=== PATIENT | male | born 1960 | race Caucasian/White ===

== ENCOUNTER → 2017-07-29 | Outpatient (CLI) | payer OTHER ==
--- NOTE | 2017-07-29 19:05 | CONS ---
CONSULTATION DATE OF SERVICE: 07/29/2017 57-year-old gentleman has been evaluated in [facility] for obstructive sleep apnea- hypopnea syndrome. HISTORY OF PRESENT ILLNESS/SLEEP WAKE EVALUATION: Patient has been diagnosed with obstructive sleep apnea 21 years ago. Since that time he is on treatment with CPAP with a nasal mask. About 1 year ago he received new machine and since that time he referring problem while he is using his machine. According to his , he sometimes snores with the machine and he wakes up from sleep twice using his machine and possibly has episodes of stopped breathing during the sleep due to sleep. Copy of report should go to Dr. Yuniel Aponte, in [employer]. SLEEP SCHEDULE: Usual sleep schedule from 11:00 p.m. to 430 a.m. or until 8:00 am is depending of patient's shift. 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 On weekends he sleeps from 11:00 p.m. to 8:00 a.m. FALLING ASLEEP: Sometimes he has problem with falling asleep. Has TV set in bedroom. DURING SLEEP: According to his , he snores and episodes of stopped breathing episodes while using his CPAP. I checked his CPAP unit. It is an outer regimen 10-15 cm of water. Apnea-hypopnea index reading for the last night at 9.7, for the last month in the range of 4. Usage is 28 out of 30 nights for more than 4 hours. Average usage is 6.9 hours. Significant leak 90 L/minute. PAST MEDICAL HISTORY: Positive for recent memory problems. PAST SURGICAL HISTORY: Appendectomy, tonsillectomy. MEDICATIONS: None. SOCIAL HISTORY: Positive for smoking in the past for 25 pack years, quit about 15 years ago. Alcohol consumption occasional. FAMILY HISTORY: Hyperlipidemia, arthritis, lung problems, cancer. REVIEW OF SYSTEMS: Awakenings from sleep. Recent memory problems, snoring with CPAP. PHYSICAL EXAM: gentleman without distress. BP 151/79, HR 74, RR 16, height 5 feet 7 inches, weight 171, BMI 26.7, temp 97.7, oxygen saturation room air 95%. Oropharynx low position of soft palate, restriction of nasal breathing on the left side. Neck 16 inches in circumference. Neck Supple, no JVD. Thyroid is not palpable. LUNGS Clear to percussion and to auscultation. Good air exchange. No wheezing or rhonchi. HEART S1, S2 regular. No murmurs, gallops, or rubs. ABDOMEN Soft and nontender. Bowel sounds are present. No organomegaly appreciated. EXTREMITIES No clubbing or cyanosis. 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 Cranial nerves 2 to 7 intact. There is no fasciculation or atrophy. noted. No focal deficits observed. IMPRESSION: 1. Obstructive sleep apnea-hypopnea syndrome for more than 20 years. For last year patient experiencing difficulties with his CPAP unit according to his for snoring and episodes of stopped breathing. Apnea-hypopnea index reading for the last night from the machine 9.7. The patient demonstrated practically 100% compliance with CPAP therapy. 2. Memory problems. 3. Status post appendectomy. 4. Status post tonsillectomy. 5. History of 25 pack year smoking in the past. 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 PLAN: 1. We will proceed with CPAP titration for evaluation of effective CPAP pressure at the present time and also for proper fitting patient with a mask. 2. Very well sleep hygiene. 3. Sleep hygiene with regular time in bed for at least 8 hours. 4. No driving if feeling sleepiness. Sincerely, Manuel Solis MD, PhD, FAASM Diplomat of [employer] Medical Staff Services Manager of [facility] [place] MMODL / YAS: [id number] /
== END | disposition home or self-care (01) ==
LOC: SLEEP 13:09
PROVIDERS: ATTEND Internal Medicine
DX: G47.33 Obstructive sleep apnea (adult) (pediatric) (principal); R41.3 Other amnesia; Z87.891 Personal history of nicotine dependence; Z90.89 Acquired absence of other organs
CPT/HCPCS: 99211

== ENCOUNTER → 2017-08-19 | Outpatient (CLI) | payer OTHER ==
--- NOTE | 2017-08-19 11:30 | SFUN ---
SLEEP CENTER FOLLOW UP NOTE DATE OF SERVICE: 08/19/2017 This 57-year-old gentleman has been followed in the sleep center for treatment of obstructive sleep apnea-hypopnea syndrome. Recently patient underwent CPAP titration, which showed that effective pressure was 8 cm of water. Subsequently, CPAP unit was adjusted to this pressure and today patient returned back for followup visit. Presently, he is able to use his machine every night, which he was not able to do before pressure in the machine was changed and sleeps well. [place] Sleepiness Scale today is 6. He had one episode for the last week when he had some abnormalities of breathing while he used his machine he believes. I checked his CPAP unit. CPAP pressure is 8 cm of water. Usage is a every night more than 4 hours. Average usage is 6.6 hours. Leak is 49 L/minute for the last week. Apnea-hypopnea index in the range of 5, which is acceptable range. MEDICATIONS: None. PHYSICAL EXAMINATION: During physical exam, patient in no distress. VITAL SIGNS: BP 127/71, HR 69, RR 12, temperature 98.1, oxygen saturation at room air 95%. HEENT: PERRLA, EOMI. Oropharynx, low position of soft palate. NECK: Supple, no JVD. Thyroid is not palpable. LUNGS: Clear to percussion and to auscultation. Good air exchange. No wheezing or rhonchi. HEART: S1, S2 regular. No murmurs, gallops, or rubs. ABDOMEN: Soft and nontender. Bowel sounds are present. No organomegaly appreciated. EXTREMITIES: No clubbing or cyanosis. 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 Cranial nerves 2 to 7 intact. There is no fasciculation or atrophy. noted. No focal deficits observed. IMPRESSION: 1. Obstructive sleep apnea-hypopnea syndrome. Patient demonstrates a great compliance with treatment benefitting from treatment. 2. Some moderate periodic limb movements have been documented during the sleep study. Clinically not any problems related to movements. 3. History of memory problems. 4. Status post tonsillectomy. 5. Status post appendectomy. 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 7. History of 25 pack year smoking in the past. PLAN: 1. I will increase pressure in CPAP unit to 9 cm of water. 2. Patient will continue to use his equipment every night for the whole night. 3. Sleep hygiene with regular time in bed for 8 hours. 4. No driving if feeling any sleepiness. Thank you very much for allowing me to participate in management of your patient. Sincerely, Manuel Solis MD, PhD, FAASM Diplomat of [employer] Patient Assistant of [facility] [place] I will see patient in 6 months or earlier if patient has any problems. MMODL / IJN: [id number] /
== END | disposition home or self-care (01) ==
LOC: SLEEP 10:25
PROVIDERS: ATTEND Internal Medicine
DX: G47.33 Obstructive sleep apnea (adult) (pediatric) (principal); G47.61 Periodic limb movement disorder; Z90.89 Acquired absence of other organs; Z87.891 Personal history of nicotine dependence; Z86.59 Personal history of other mental and behavioral disorders; Z99.89 Dependence on other enabling machines and devices

== ENCOUNTER → 2020-12-10 | Outpatient (CLI) | payer OTHER ==
--- NOTE | 2020-12-10 15:06 | P.SLEEP ---
History of Present Illness H&P Date: 12/10/20 this is a 60-year-old male patient is coming in regarding his obstructive sleep apnea. The patient has seen in our office through Dr. Solis and his last evaluation in our office was back in 2018. At that time, the patient was utilizing a CPAP machine at a pressure of 11 cm of water. This was based on a titration that was done back then and his treatment was essentially successful. More recently, the patient was having some issues with leaks on the mask and snoring and increased tiredness and sleepiness. For that reason, the patient came back for another evaluation. There is my first encounter with the patient. Is a pleasant gentleman, who has been a long-term CPAP user. He goes to bed around 8 PM, wakes up 3 AM in the morning and on weekends he goes to bed around 9 PM and wakes at 6 AM in the morning. He is averaging more than 6 hours of sleep. No major hypersomnia and sleepiness during the day. No sleepwalking. No sleep talking. No recent weight gain or weight loss. In fact over the past 5 years, the patient has lost weight. He sleeps in different body positions. Jeanmarie hunter does not drink alcohol yet he drinks 6 cups of caffeinated beverage on a daily basis. I checked the patient's CPAP unit. The patient has a functioning new generation ResMed unit which is in APAP unit and this is set at a fixed pressure of 11 cm of water. He is also using the airfit F20 facemask large size. I checked the mask setting and the patient had had used that were rather old and loose. Probably the leak was related to the loosen straps on the headgear. Otherwise, based on compliancy, the patient utilizes machine every night. His compressive for more than 4 hour use is at 100%. Leak has been in the order of 22 L per minute and his AHI was down to 5.1. The patient was averaging around 6.8 hours of CPAP use per night. His current upper scores at 5. No other new onset medical problems and comorbidities. No cardiovascular disease. No cardiac arrhythmias. No nighttime shortness of breath or chest pain. No episodes of falling sleep during day-to-day activities. No memories of concentration. No other complaints otherwise for now. Review of Systems Constitutional: Reports fatigue Eyes: denies as per HPI, denies blurred vision, denies bulging eye, denies decreased vision, denies diplopia, denies discharge, denies dry eye, denies irritation, denies itching, denies pain, denies photophobia, denies loss of peripheral vision, denies loss of vision, denies tunnel vision/blind spots Ears: deny: decreased hearing, ear discharge, earache, tinnitus Ears, nose, mouth and throat: Reports as per HPI Breasts: absent: as per HPI, gynecomastia Cardiovascular: Reports as per HPI Respiratory: Reports as per HPI Gastrointestinal: Reports as per HPI Genitourinary: Reports as per HPI Musculoskeletal: Reports as per HPI Musculoskeletal: absent: ankle pain, ankle stiffness, ankle swelling, as per HPI, elbow pain, elbow stiffness, elbow swelling, foot pain, foot stiffness, elva t swelling, hand pain, hand stiffness, hand swelling, hip pain, hip stiffness, hip swelling, knee pain, knee stiffness, knee swelling, shoulder pain, shoulder stiffness, shoulder swelling, wrist pain, wrist stiffness, wrist swelling Integumentary: Reports as per HPI Neurological: Reports as per HPI Psychiatric: Reports as per HPI Endocrine: Reports as per HPI Hematologic/Lymphatic: Reports as per HPI Allergic/Immunologic: Reports as per HPI Past Medical History Past Medical History: Sleep Apnea/CPAP/BIPAP Additional Past Medical History / Comment(s): cervical spondylosis Additional Past Surgical History / Comment(s): surgery for cervical spondylosis Past Psychological History: No Psychological Hx Reported Smoking Status: Never smoker Past Alcohol Use History: None Reported Past Drug Use History: None Reported Medications and Allergies Home Medications and Allergies Comment(s): no medication inake Physical Exam The patient appeared well nourished and normally developed. Vital signs as documented. Head exam is unremarkable. No scleral icterus or corneal arcus noted. Neck is without jugular venous distension, thyromegaly, or carotid bruits. Carotid upstrokes are brisk bilaterally. Lungs are clear to auscultation and percussion. Cardiac exam reveals the PMI to be normally sized and situated. Rhythm is regular. First and second heart sounds normal. No murmurs, rubs or gal lops. Abdominal exam reveals normal bowel sounds, no masses, no organomegaly and no aortic enlargement. Extremities are nonedematous and both femoral and pedal pulses are normal.Examination of the skin revealed no evidence of significant rashes, suspicious appearing nevi or other concerning lesions.Neurologically, the patient is awake and alert and the patient does not have any focal neurological deficit. Cranial nerves are essentially intact.Neurologically, the patient is awake and alert and the patient does not have any focal neurological deficit. Cranial nerves are essentially intact. Assessment and Plan Plan: 1 obstructive sleep apnea. The patient has an established diagnosis of obstructive sleep apnea many years back and the patient is currently on CPAP pressure of 11 cm of water. Continues to be extremely compliant to CPAP therapy. Nevertheless, he is having issues with some limited limited leaks around the mask and his AHI is currently above 5. No recent weight gain. His [place] score is at 5. No major hypersomnia and sleepiness during the day. No new onset comorbidities. No weight gain. No other cardiovascular complications Plan Offered the patient the Airfit F30i large medium-sized fullface mask and the mask fit was much better with this mask and I would anticipate lamination of the leaks and the appropriate mask fitting was done in the office. Switch this patient in APAP mode at a pressure minimum of 10 and a maximum of 15 and this should allow to bring his AHI on the 5 Otherwise the patient is compliant with CPAP therapy Sleep hygiene measures and in general good Maintenance a regular sleep schedule See her back in 6 months for another compliancy check Sleep Note - Sleep Data Previous Sleep Study: Yes PAP Device: CPAP Mask: Model (ResMed air sense Autoset) Using Heated Humidity: Yes - Sleep Note Sleep Note: Temperature: 97 8 Pulse Rate: 67 Respiratory Rate: 16 Blood Pressure: 147/81 SpO2: 97% Height: 5 feet 7 inches Weight: 167 pounds BMI: 25.3 Neck Circumference: 15 and half inches Current [place] score is at 5
== END | disposition home or self-care (01) ==
LOC: SLEEP 14:34
PROVIDERS: ATTEND Internal Medicine Critical Care Medicine
DX: G47.33 Obstructive sleep apnea (adult) (pediatric) (principal)
CPT/HCPCS: 99202

== ENCOUNTER → 2021-06-17 | Outpatient (CLI) | payer OTHER ==
--- NOTE | 2021-06-17 16:18 | P.PN ---
Subjective Progress Note Date: 06/17/21 this is a 60-year-old male patient is coming in regarding his obstructive sleep apnea. The patient has seen in our office through Dr. Solis and his last evaluation in our office was back in 2018. At that time, the patient was utilizing a CPAP machine at a pressure of 11 cm of water. This was based on a titration that was done back then and his treatment was essentially successful. More recently, the patient was having some issues with leaks on the mask and snoring and increased tiredness and sleepiness. For that reason, the patient came back for another evaluation. There is my first encounter with the patient. Is a pleasant gentleman, who has been a long-term CPAP user. He goes to bed a round 8 PM, wakes up 3 AM in the morning and on weekends he goes to bed around 9 PM and wakes at 6 AM in the morning. He is averaging more than 6 hours of sleep. No major hypersomnia and sleepiness during the day. No sleepwalking. No sleep talking. No recent weight gain or weight loss. In fact over the past 5 years, the patient has lost weight. He sleeps in different body positions. He does not drink alcohol yet he drinks 6 cups of caffeinated beverage on a daily basis. I checked the patient's CPAP unit. The patient has a functioning new generation ResMed unit which is in APAP unit and this is set at a fixed pressure of 11 cm of water. He is also using the airfit F20 facemask large size. I checked the mask setting and the patient had had used that were rather old and loose. Pro bably the leak was related to the loosen straps on the headgear. Otherwise, based on compliancy, the patient utilizes machine every night. His compressive for more than 4 hour use is at 100%. Leak has been in the order of 22 L per minute and his AHI was down to 5.1. The patient was averaging around 6.8 hours of CPAP use per night. His current upper scores at 5. No other new onset medical problems and comorbidities. No cardiovascular disease. No cardiac arrhythmias. No nighttime shortness of breath or chest pain. No episodes of falling sleep during day-to-day activities. No memories of concentration. No other complaints otherwise for now. On 06/17/2021, seeing this patient and his sleep center for a follow-up. Note that during his last evaluation, I try to update him to airfit F30 i full facemask to improve the facial leaks that the patient was experiencing. The patient was also switched to APAP mode at a minimum pressure of 10 and a maximum pressure of 15. Since then, the patient has been on APAP mode. Nevertheless, he was unable to tolerate the F 30 model and he went back on using his airfit F20 fullface mask.he is currently successfully treated and the patient's average pressure delivered by the machine is around 13.3 and his been using the machine on average of 6.7 hours per night and his machine use this for more than 4 hours as 100%. His leak is in order of 7 L per minute and his AHI is down to 2.1. I'm quite impressed with the improvement in the leak that the patient is encountering. However,the patient is still limited the machine unexpectedly turns off in the middle of the night and this occurred on several occasions where the patient felt quite suffocating. He has had the same issue since 2014 and is very much interested in obtaining a new CPAP machine. Accordingly, a new order will be given to [facility] to proceed with a new CPAP unit. The patient has no major hypersomnolent sleepiness during the day. His sleep apnea as well treated for now. No recent weight gain. No substance abuse. He is sleeping a good 7-8 hours per night and is not having any sleep fragmentation unless his machine quits on him. No other new complaints otherwise for now. No chest pain. No shortness of breath and no heartburn. No palpitations. Objective - Exam BP is 143/77 with a pulse of 65 and respiration of 16 with a temperature 97.6 and saturation 97% on room air and his weight is 161 with an [place] score of 2 Gen. appearance, comfortable no signs of anyactive distress The patient appeared well nourished and normally developed. Vital signs as documented. Head exam is unremarkable. No scleral icterus or corneal arcus noted. Neck is without jugular venous distension, thyromegaly, or carotid bruits. Carotid upstrokes are brisk bilaterally. Lungs are clear to auscultation and percussion. Cardiac exam reveals the PMI to be normally sized and situated. Rhythm is regular. First and second heart sounds normal. No murmurs, rubs or gallops. Abdominal exam reveals normal bowel sounds, no masses, no organomegaly and no aortic enlargement. Extremities are nonedematous and both femoral and pedal pulses are normal.Neurologically, the patient is awake and alert and the patient does not have any focal neurological deficit. Cranial nerves are essentially intact.Examination of the skin revealed no evidence of significant rashes, suspicious appearing nevi or other concerning lesions. Assessment and Plan Plan: 1 obstructive sleep apnea. The patient has symptomatic of second sleep apnea and over the years he has been treated successfully. Initially was on a CPAP pressure of 11 cm of water. During his last evaluation, I switched to an APAP mode and is currently on a minimum pressure of 10 and a maximum pressure of 15.he is currently using the airfit F20 fullface mask and his treatment is been essentially successful and there has been improvement in the facial leaks and the patient's AHI is down to 2.1 while on treatment. His machine is acting up and it's quitting on him and the middle of the night and this occurred on several occasions and the patient is very much interested in updating his CPAP unit Plan I checked the machine and personally think that the machine is functional. Based on the fact that the machine is getting turned off unexpectedly the middle of the night is causing significant distress, I think it's reasonable to order a new CPAP machine. The new CPAP machine will be a ResMed Airsense 11 which would beplaced on the same APAP mode and will keep the same mask interface. If a new machine is delivered to the patient, the patient will need to come and see her back for a compliance check in 30-90 days. We'll continue to follow.
== END ==
LOC: SLEEP 15:49
PROVIDERS: ATTEND Internal Medicine Critical Care Medicine
DX: Z53.9 Procedure and treatment not carried out, unspecified reason (principal)